=== PATIENT | female | born 1935 | race Caucasian/White ===

== ENCOUNTER 2020-07-02 11:27 | Emergency (ER) | payer MEDICARE, BC ==
[~2020-07-02] VITALS: Ht 160 cm; Wt 45.0 kg
[2020-07-02] MEDS ORDERED: PROBIOTIC1 TAB PO ×2 (12:12→12:45)
[2020-07-02] MEDS ORDERED: AMOX/K CLAV875 M1 PO ×2 (12:12→12:45)
[2020-07-02 13:15] VITALS: BP 122/68
== END 2020-07-02 13:15 | disposition home or self-care (01) ==
LOC: ED 11:27
DX: S51.851A Open bite of right forearm, initial encounter (principal); W55.01XA Bitten by cat, initial encounter